=== PATIENT | male | born 1965 | race Caucasian/White ===

== ENCOUNTER 2017-06-05 11:48 | Outpatient (CLI) | payer SELFPAY ==
--- NOTE | 2017-06-05 18:18 | Diagnostic Imaging Report ---
BRADLEY SANABRIA [facility] [id number] [facility] [address] [address] Report Submission Date: Jun 05, 2017 12:22:49 PM CDT Patient Study Name: CHICO POWELL Date: Jun 05, 2017 12:04:21 PM CDT Modality Type: DX Gender: M Description: CHEST : 65 Institution: [facility] Physician: BRADLEY SANABRIA 2 views of the chest History: COUGH/ SOA X1 WEEK WITH MILD HEMOPTYSIS, PT STATES NO PRIOR SURGERIES OR INJURIES, NON-SMOKER No prior comparison studies Masslike dense consolidation noted predominantly in the right upper lung with slight mass effect on the adjacent mid trachea and superior mediastinum. No pleural effusion. No pneumothorax. Left lung is clear. Cardiac size is within normal limits. No obvious acute pathology. Impression: 1. Large mass/masslike consolidation is noted predominantly in the right upper lobe with mediastinal mass effect and possible mediastinal extension. No pleural effusion. Findings are concerning for malignancy. Contrast enhanced CT chest evaluation is recommended 2. Clear left lung. Electronically signed on Jun 05, 2017 12:22:49 PM CDT by: Mary Jo PEGUERO
== END 2017-06-05 11:55 ==
LOC: RAD 11:48
PROVIDERS: ATTEND Family Medicine
DX: R05 Cough (principal); R04.2 Hemoptysis
CPT/HCPCS: 71046